=== PATIENT | female | born 1965 | race Caucasian/White ===

== ENCOUNTER 2023-12-04 08:04 | Outpatient (RCR) | payer BC, SELFPAY | END 2024-04-02 23:59 | disposition home or self-care (01) | PROVIDERS: PCP Orthopaedic Surgery; Visit Provider Orthopaedic Surgery | DX: M16.11 Unilateral primary osteoarthritis, right hip (principal); Z51.89 Encounter for other specified aftercare; R26.9 Unspecified abnormalities of gait and mobility; M62.81 Muscle weakness (generalized); M25.551 Pain in right hip | CPT/HCPCS: 97110; 97161 ==

== ENCOUNTER 2023-12-15 06:02 | Day surgery (SDC) | payer BC, SELFPAY ==
[2023-12-15] VITALS (20 sets, daily range): BP systolic 96–151; BP diastolic 51–117; PULSE 60–82; RESP 16–21; TEMP 35.9–36.8; O2SAT 92–98; BMI 30.4
[2023-12-15] MEDS: ACETAMINOPHEN 500 MG TABLET 1000 MG PO (06:20)
[2023-12-15] MEDS: OXYCODONE (CR) 10 MG TAB.ER.12H PO (06:20)
[2023-12-15] MEDS: CELECOXIB 200 MG CAPSULE PO (06:20)
[2023-12-15] MEDS: LACTATED RINGERS 1000 ML 1,000 ML 100 ML IV ×2 (06:25→10:35)
[2023-12-15] MEDS: SODIUM CHLORIDE 0.9 % (FLUSH) 10 ML SYRINGE IVF (06:25)
[2023-12-15] MEDS: MIDAZOLAM HCL 1 MG/ML inj IVP (07:23)
[2023-12-15] MEDS: fentaNYL 100 MCG/2 ML inj IVP (07:23)
--- NOTE | 2023-12-15 07:30 | XR_ITS ---
Patient: MARINA HSU Facility:?[facility] Patient ID:?[id number] Site Patient ID:?[id number]. Site :?1965 Study:?XRay-Hip Right 2V-12/15/2023 9:16:43 AM Ordering Physician:DB Final Report: Indication: Hip replacement surgery Technique: AP hip fluoroscopic images. Fluoroscopy time 67.4 seconds. Findings/Impression: Hardware from a right total hip arthroplasty is in satisfactory position. Dictated by Denzel Gabriel MD @ 12/15/2023 10:25:42 AM Signed by:?Denzel Gabriel MD @12/15/2023 10:25:42 AM (Electronic Signature)
[2023-12-15] MEDS: CEFAZOLIN 2 GM INJ IVP (07:40)
[2023-12-15] MEDS: TRANEXAMIC ACID 100 MG/ML INJ 1000 MG IV (07:45)
--- NOTE | 2023-12-15 07:52 | SUR.PREOP ---
TIME?OUT:?0722 PT/RN/MDA?VERIFICATION?OF?SURGICAL?SITE,?PROCEDURE,?AND?CONSENT OBTAINED?PRIOR?TO?INVASIVE?PROCEDURE. all in agreement.
--- NOTE | 2023-12-15 08:58 | XR_ITS ---
Patient: MARINA HSU Facility:?[facility] Patient ID:?[id number] Site Patient ID:?[id number]. Site :?[id number] Study:?XRay-Hip Right 2V POST OP-12/15/2023 12:32:39 PM Ordering Physician:DB Final Report: Indication: POST OP RIGHT HIP Technique: Frontal and lateral views of the right hip Comparison: None Findings/impression: Postsurgical changes of right total hip arthroplasty without evidence of hardware related complication. Expected postoperative gas within the soft tissues of the right hip and lower extremity. Partially visualized Essure devices. Dictated by Marquis Esquivel MD @ 12/15/2023 5:20:00 PM Signed by:?Marquis Esquivel MD @12/15/2023 5:20:00 PM (Electronic Signature)
--- NOTE | 2023-12-15 09:00 | PM.ORPRC ---
Procedure Note Date of procedure: 12/15/23 Procedure: PREOPERATIVE DIAGNOSIS: Right hip osteoarthritis POSTOPERATIVE DIAGNOSIS: Right hip osteoarthritis NAME OF OPERATION: Right total hip arthroplasty SURGEON: Manuel Ocampo MD COTTON WASHER: Makayla Arreola PA-C, KELIN Rocha IMPLANTS: 1. [employer] [place] # 52 ingrowth cup 2. 36 x 52 +4 neutral polyethylene 3. Actis # 5 standard collared ingrowth stem 4. 36 + 1.5 ceramic femoral head ANESTHESIA: General ESTIMATED BLOOD LOSS: 750 cc COMPLICATIONS: None SPECIMENS: None DRAINS: None PREOPERATIVE ANTIBIOTICS: Ancef 2 grams INDICATIONS: The patient is a 58-year-old with a longstanding history of severe, unrelenting right hip pain secondary to end-stage right hip osteoarthritis. Despite appropriate nonoperative management, including activity modification, use of an assist device, anti-inflammatories, [id number] pain medication, physical therapy and injections, they continue to have pain and disability. Operative intervention was offered. The risks, benefits and expected outcomes were discussed in detail. These included but were not limited to: Infection, bleeding, injury to blood vessel or nerve, venous thromboembolism. All questions were answered to their satisfaction. Use of an legal document assistant was necessary throughout the case for patient positioning and safety, soft tissue retraction and closure. PROCEDURE: The patient was placed supine on the [place] table. General anesthesia was administered. The legal document assistant made sure the patient was properly positioned. The right hip was prepped and draped in the usual sterile fashion. The image intensifier was brought in for a perfect AP pelvis and a perfect double tear drop AP view of each hip which were used for intraoperative templating with our fluoroscopic guide. An oblique incision was made 3 cm distal and 3 cm lateral to the anterior superior iliac spine. The legal document assistant retracted the soft tissues to protect them. Subcutaneous dissection was taken with electrocautery to the superficial fascia. The fascia was divided in line with the incision. Blunt dissection was carried medially to the tensor fascia lucila and sartorius interval. Deep dissection was carried with electrocautery. The circumflex vessels were cauterized and divided. The capsule was exposed and then divided in a T-fashion, tagged with #1 Ethibond sutures. Retractors were placed in the joint, held by the legal document assistant. The corkscrew was placed in the femoral head. The neck cut was made in the subcapital region. We made a second neck cut more distal. The napkin ring of bone was removed. The femoral head was removed intact. Acetabular retractors were placed, held by the legal document assistant. The labrum was sharply debrided. The capsule was released. The 43 mm reamer was used to the true medial wall. We then enlarged in 2 mm increments using the image intensifier for our reamer placement. We impacted the cup which had excellent purchase. We placed the polyethylene. Attention was then turned to the proximal femur. The limb was placed in 140 degrees of external rotation, maximum extension and adduction. A significant amount of time was spent releasing the capsule to allow us to deliver the femur into the wound and complete the femoral side safely. Retractors were held by the legal document assistant throughout the femoral preparation. The gill box operator and canal finder were used. Broaches were used to a stable size. The calcar reamer was used. Trial components were placed. The hip was reduced and was found to be stable with appropriate soft tissue tension. Length and offset had been nicely restored using the image intensifier and our fluoroscopic guide. Trial components were removed. The stem was impacted. We placed the femoral head. Again, the hip was reduced and was found to be stable with appropriate soft tissue tension. Length and offset had been nicely restored. The legal document assistant did a three minute dilute Betadine solution soak. The legal document assistant irrigated the wound with 3 liters of normal saline via pulse lavage. The legal document assistant repaired the anterior capsule with a #1 Vicryl and our previously placed Ethibond sutures. The legal document assistant closed the fascia over the tensor fascia lucila with a #1 PDO Stratafix, subcutaneous tissues with 2-0 Vicryl, skin with a running 3-0 Stratafix and glue. A dry dressing was applied by the legal document assistant. Sponge and needle counts were correct x 2. The patient tolerated the procedure well; there were no apparent complications. They were awakened and extubated in the operating room, sent to the Post-Anesthesia Care Unit in satisfactory condition. PLAN: 1. The patient will be mobilized with physical therapy, weight-bearing as tolerates 2. Xarelto x 5 days then aspirin x 30 days will be used for DVT prophylaxis 3. The patient will be discharged once medically appropriate
--- NOTE | 2023-12-15 09:14 | P.NB_ITS ---
Nerve Block Nerve Block Time Seen by Provider: 07:30 Date Seen: 12/15/23 Type of block requested by surgeon for post-operative analgesia: JULIA/LFCN Side: right Time out performed: Yes Verification of patient name: Yes Verification of date of : Yes Site marking: site marked Name of person performing procedure: Dheeraj Continuous monitoring Was continuous monitoring of O2 sat, B/P, cardiac cath rn, recorded every 15 minutes?: Yes Procedure Checklist: sterile prep, needles and gloves Ultrasound guided. Images saved: Yes Medications given in 5ml increments after negative aspiration: Ropivicaine %: 0.5 mL: 30 Needle gauge: 20 Decadron (mg): 10 Precedex (mcg): 25 Patient tolerated procedure well: Yes Additional comments: Needle noted below psoas tendon needle noted adjacent to LFCN Block Charges Block Charge (with Pro Fee): Other Periph Nerve Block Use of Ultrasound Machine for Block: Yes- US Guidance/pain block
--- NOTE | 2023-12-15 09:15 | W.ANESCHARGE ---
Anesthesia Charges Start Date/Time Anesthesia Start Date: 12/15/23 Anesthesia Start Time: 07:36 Stop Date/Time Anesthesia Stop Date: 12/15/23 Anesthesia Stop Time: 09:42
--- NOTE | 2023-12-15 09:41 | W.ANESCHARGE ---
Anesthesia Charges Start Date/Time Anesthesia Start Date: 12/15/23 Anesthesia Start Time: 07:36 Stop Date/Time Anesthesia Stop Date: 12/15/23 Anesthesia Stop Time: 09:42
[2023-12-15] MEDS: fentaNYL 100 MCG/2 ML inj 50 MCG IVP (10:07)
[2023-12-15] MEDS: OXYCODONE 5 MG TABLET PO (12:18)
[2023-12-15] MEDS: METOCLOPRAMIDE HCL 5 MG/ML INJ 10 MG IVP (13:44)
== END 2023-12-15 14:59 | disposition home or self-care (01) ==
PROVIDERS: PCP Physician Assistant; Visit Provider Orthopaedic Surgery
PROC: (CPT 27130; principal; 2023-12-15 07:30)
DX: M16.11 Unilateral primary osteoarthritis, right hip (principal); G89.18 Other acute postprocedural pain
CPT/HCPCS: 27130; 01214; 36415; 64450; 73501; 76000; 76942; 86850; 86900; 86901; 97110; 97116; 97161; 97165; A9270; C1776; J0330; J0690; J1100; J1170; J2250; J2405; J2704; J2710; J2765; J3010; J3475; J3490; J7120

== ENCOUNTER 2025-03-09 09:00 | Outpatient (CLI) | payer BC, SELFPAY ==
--- NOTE | 2025-03-09 09:15 | CRLHL7_ITS ---
For Patients: As a result of the Century Cures Act, medical imaging exams and procedure reports are released immediately into your electronic medical record. You may view this report before your referring provider. If you have questions, please contact your health care provider. ULTRASOUND-GUIDED LEFT BREAST BIOPSY AND POST-BIOPSY DIGITAL MAMMOGRAM FOR BIOPSY MARKER PLACEMENT CLINICAL HISTORY: Suspicious lesion. COMPARISON STUDIES: 02/22/2025 TECHNIQUE: Real-time ultrasound with image documentation was used for targeting the LEFT breast lesion. Core biopsy specimens were obtained using an automated gun with a 16-gauge biopsy needle. Post-biopsy CC and ML digital mammograms were obtained to document position of the biopsy marker. CONSENT and TIME OUT: The procedure, risks, and alternatives were explained to the patient and a consent was signed. [place] Protocol was followed including pre-procedure verification that relevant information/documentation was available, reviewed and properly matched to the patient; consent accurate and complete; and equipment and supplies available. Time Out was conducted just prior to starting procedure to verify the four required elements: patient identity, correct side/site marked (if applicable), procedure, relevant images/results properly labeled and displayed (if applicable). PROCEDURE: The patient was positioned supine on the ultrasound table. The breast was prepped with ChloraPrep. 8 cc of 1% lidocaine used for local anesthesia. Core samples were obtained. A sterile metal biopsy clip was placed percutaneously to amish the lesion position within the breast. The specimens were placed in 10% formalin and sent to the pathology department. Pressure was held on the biopsy site until all bleeding subsided. The skin incision was closed with Steri-Strips. An ice pack was positioned over the biopsy site. Post-biopsy instructions were reviewed with the patient, and a written copy was given to her. LATERALITY: LEFT breast LESION: Hypoechoic solid nodule measuring 9 x 9 x 5 mm at 2 o`clock, 8 cm from the nipple. SUSPICION FOR MALIGNANCY: High NUMBER OF SAMPLES: 5 BIOPSY CLIP SHAPE: Oval-shaped PROXIMITY OF CLIP TO TARGET: Within the lesion IMPRESSION: Ultrasound-guided LEFT breast biopsy. When the pathology report is available, an addendum to this report will be made. ACR not applicable Note that the LEFT axillary lymph nodes appeared normal on the ultrasound from 02/22/2025. Dictated by Denzel Gabriel MD @ 03/09/2025 12:25:43 PM CRL:freda RD/Dictated by: Denzel Gabriel MD @ 03/09/2025 12:25:00 PM (Electronically Signed)
--- NOTE | 2025-03-09 10:00 | CRLHL7_ITS ---
For Patients: As a result of the Century Cures Act, medical imaging exams and procedure reports are released immediately into your electronic medical record. You may view this report before your referring provider. If you have questions, please contact your health care provider. SEE LEFT BREAST ULTRASOUND-GUIDED BIOPSY OF SAME DAY. CRL:freda RD/Dictated by: Denzel Gabriel MD @ 03/09/2025 12:24:00 PM (Electronically Signed)
== END 2025-03-09 09:01 | disposition home or self-care (01) ==
LOC: US 09:01
PROVIDERS: PCP Physician Assistant; Visit Provider Physician Assistant
DX: N63.20 Unspecified lump in the left breast, unspecified quadrant (principal); C50.912 Malignant neoplasm of unspecified site of left female breast; R92.8 Other abnormal and inconclusive findings on diagnostic imaging of breast
CPT/HCPCS: 19083; 77065; 88305; 88360; 88361; A4648; A4649

== ENCOUNTER 2025-04-03 07:24 | Day surgery (SDC) | payer BC, SELFPAY ==
[2025-04-03] MEDS: LACTATED RINGERS 1000 ML 1,000 ML 100 ML IV (07:30)
[2025-04-03 07:47] VITALS: BP 122/84; PULSE 61; RESP 16; TEMP 36.6; O2SAT 96; BMI 28.8
[2025-04-03] MEDS: SODIUM CHLORIDE 0.9 % (FLUSH) 10 ML SYRINGE IVF (07:51)
--- NOTE | 2025-04-03 09:00 | CRLHL7_ITS ---
For Patients: As a result of the Century Cures Act, medical imaging exams and procedure reports are released immediately into your electronic medical record. You may view this report before your referring provider. If you have questions, please contact your health care provider. INDICATION: Left-sided breast carcinoma presenting for sentinel node evaluation prior to surgery. TECHNIQUE: [place] lymph node study performed after the intradermal injection of 0.872 mCi Tc-99m Filtered Sulfur Colloid in the upper outer left breast. FINDINGS: The procedure and its risks were explained in detail to the patient including but not limited to the risk of bleeding, infection, and a nondiagnostic procedure. The patient understood the procedure and its risks and elected to proceed. [place] protocol was followed and the Time Out procedure was performed. Then, using sterile technique and local anesthesia, an intradermal injection of 0.872 mCi Tc-99m Filtered Sulfur Colloid was made in the upper outer left breast in the periareolar region. No complications. Dictated by Denzel Gabriel MD @ 04/03/2025 10:51:13 AM (Electronically Signed)
--- NOTE | 2025-04-03 09:15 | CRLHL7_ITS ---
For Patients: As a result of the Century Cures Act, medical imaging exams and procedure reports are released immediately into your electronic medical record. You may view this report before your referring provider. If you have questions, please contact your health care provider. BREAST WIRE LOCALIZATION USING ULTRASOUND GUIDANCE CLINICAL HISTORY: Invasive ductal carcinoma. LATERALITY: LEFT breast. LESION: Solid angular nodule measures 8 millimeters at 2 o`clock 8 cm from the nipple. LOCALIZATION WIRE: [place] hookwire. TECHNIQUE: The localization wire was placed using real-time ultrasound guidance with image documentation. Cranial-caudal and medial-lateral digital mammograms were obtained after localization wire placement. CONSENT and TIME OUT: The procedure, risks, and alternatives were explained to the patient and a consent was signed. [place] Protocol was followed including pre-procedure verification that relevant information/documentation was available, reviewed and properly matched to the patient; consent accurate and complete; and equipment and supplies available. Time Out was conducted just prior to starting procedure to verify the four required elements: patient identity, correct side/site marked (if applicable), procedure, relevant images/results properly labeled and displayed (if applicable). PROCEDURE: The skin was prepped with ChloraPrep and 8 cc of 1% lidocaine was injected for local anesthesia. The localization wire was placed within or near the targeted breast lesion using ultrasound guidance. The patient tolerated the procedure well. PROXIMITY OF WIRE TO LESION: The wire is present within the lesion adjacent to the clip. IMPRESSION: Successful breast wire localization. ACR not applicable Dictated by Denzel Gabriel MD @ 04/03/2025 10:49:52 AM jj/Dictated by: Denzel Gabriel MD @ 04/03/2025 10:49:00 AM (Electronically Signed)
--- NOTE | 2025-04-03 09:45 | CRLHL7_ITS ---
For Patients: As a result of the Century Cures Act, medical imaging exams and procedure reports are released immediately into your electronic medical record. You may view this report before your referring provider. If you have questions, please contact your health care provider. SEE ULTRASOUND-GUIDED LEFT BREAST WIRE LOCALIZATION PERFORMED SAME DAY CRL:della hull/Dictated by: Denzel Gabriel MD @ 04/03/2025 10:47:00 AM (Electronically Signed)
--- NOTE | 2025-04-03 09:55 | W.PM.H&PU ---
History & Physical Update History & Physical Update H&P Reviewed and patient assessed: No changes noted
--- NOTE | 2025-04-03 09:55 | PM.GSPRC ---
Operative Note Date of procedure: 04/03/25 Pre-op diagnosis: Hormone positive Invasive ductal carcinoma, left breast Post-op diagnosis: Same Type of Procedure: 1. Left breast lumpectomy with preoperative wire localization 2. Left axillary sentinel lymph node biopsy Indications: The patient is a 59-year-old female who was found to have a suspicious mass on screening mammogram in her left breast. This was biopsied and found to be invasive ductal carcinoma, grade 1, ERPR positive, HER2 negative. After discussion of surgical options, she elected to proceed with lumpectomy and sentinel lymph node biopsy. Procedure Description: After discussing the risks and benefits of the procedure, the patient signed informed consent.? The operative site was marked and the patient was brought to the operating room and placed on the operating table in supine position.? Care was taken to pad the patient's pressure points.?? The patient was then given sedation by anesthesia.?? 1 hr prior to incision, I injected radiotracer into the dermis the left breast just above the areola. 10 min prior to the incision I injected 3 ml isosulfan blue dye into the dermis above the areola. This was massaged for 3 min. Once this was completed, the left breast and axilla were prepped and draped sterilely. A time-out was then completed. The mass was palpable in the upper outer breast and therefore I elected to create my incision over the top of the mass and excise the skin overlying. An ellipse was created in the skin following the skin lines and dissection was taken down through the subcutaneous fat using cautery. The end of the wire was pulled through the incision. The mass was then dissected out circumferentially down to the chest wall around the wire using cautery. This was inked for orientation and sent for specimen x-ray. This showed the clip within the specimen. This was then sent for gross margins. Attention was then turned to the sentinel lymph node biopsy. The probe was brought into the field. A strong signal was noted in the axilla. An incision was created at the base of the axillary hairline after injecting local anesthetic. Cautery was used to dissect through subcutaneous fat and then through the clavipectoral fascia. Once the axillary fat was entered, there was a blue lymphatic channel noted. This was in the general direction of the signal noted with the probe. A blue node was identified and this was carefully dissected out from the surrounding fat. A small lymphatic channel was clipped before dividing it distally. There appeared to be several nodes clumped together. These were dissected free from the surrounding axillary fat. Appeared as though there were 2 nodes that were blue which were not adjacent as well as an additional node which was not blue. These were removed together from the axilla. The 1st 2 blue nodes did have a strong signal. The smaller, node which was not blue did not have a signal with the probe. The probe was then placed back into the axilla. There was no additional signal within the axilla. There were no additional blue or abnormal appearing nodes. At this time, pathology had examine the lumpectomy specimen and found the margins to be grossly negative. Both the lumpectomy site and the lymph node site both appeared to be hemostatic. Clips were then placed in the lumpectomy cavity for marking purposes for radiation. Both wounds were then closed with 3-0 Vicryl dermal and 4-0 Monocryl running subcuticular suture. Sterile dressings were then applied. An Amol wrap was then applied. ? The patient was then woken and transported to the recovery area in stable condition. ? The patient tolerated the procedure well. Findings: 1. Left breast lumpectomy specimen with clip noted on x-ray and margins grossly negative 2. Left axillary sentinel lymph nodes identified x2 with an additional node sent Anesthesia: MAC Surgeon: Neha Izaguirre MD Estimated blood loss (mL): 10 Additional Specimen Information: 1. Left lumpectomy - for mammogram fee and gross margin and permanent section 2. Left axillary sentinel lymph nodes in formalin for permanent section Disposition: same day [place] Node Biopsy for Breast Cancer Operation Performed with Curative Intent: Yes Tracers used to Identify sentinel nodes in the upfront surgery (non-neoadjuvant) setting: Dye and Radioactive Tracer Tracers used to identify sentinel nodes in the neoadjuvant setting: N/A All nodes (colored or non-colored) present at the end of a dye filled lymphatic channel were removed: Yes All significantly radioactive nodes were removed: Yes All palpably suspicious nodes were removed: Yes Biopsy proven positive nodes marked with clips prior to chemotherapy were identified and removed: Not Applicable
[2025-04-03] MEDS: ISOSULFAN BLUE 5 ML VIAL INJECTION (10:45)
--- NOTE | 2025-04-03 11:15 | CRLHL7_ITS ---
For Patients: As a result of the Cures Act, medical imaging exams and procedure reports are released immediately into your electronic medical record. You may view this report before your referring provider. If you have questions, please contact your health care provider. LEFT BREAST SPECIMEN RADIOGRAPH CLINICAL HISTORY: INFILTRATING DUCTAL CARCINOMA COMPARISON: 03/09/2025 FINDINGS: Two views LEFT breast specimen. Specimen contains the biopsied mass, the biopsy clip and the localization wire. IMPRESSION: Specimen contains biopsied mass, biopsy clip and localization wire. ACR not applicable Dictated by Denzel Gabriel MD @ 04/03/2025 12:06:35 PM jj/Dictated by: Denzel Gabriel MD @ 04/03/2025 12:06:00 PM (Electronically Signed)
--- NOTE | 2025-04-03 11:27 | W.ANESCHARGE ---
Anesthesia Charges Start Date/Time Anesthesia Start Date: 04/03/25 Anesthesia Start Time: 10:26 Stop Date/Time Anesthesia Stop Date: 04/03/25 Anesthesia Stop Time: 12:08 Coding CPT Codes CPT Codes: ANESTH SURGERY OF SHOULDER - 11765 ([id number]) P3 - PATIENT W/SEVERE SYS DISEASE, QK - MARKETING TEACHER 2-4 CNCRNT ANES PROC, QX - GAS MASK INSPECTOR SVC W/ MD MED DIRECTION
--- NOTE | 2025-04-03 11:27 | P.ANES_ITS ---
Anesthesia Charges Start Date/Time Anesthesia Start Date: 04/03/25 Anesthesia Start Time: 10:26 Stop Date/Time Anesthesia Stop Date: 04/03/25 Anesthesia Stop Time: 12:08 Coding CPT Codes CPT Codes: ANESTH SURGERY OF SHOULDER - 81323 ([id number]) P3 - PATIENT W/SEVERE SYS DISEASE, QK - LOG RIDER 2-4 CNCRNT ANES PROC, QX - AIR BATTLE MANAGER SVC W/ MD MED DIRECTION
[2025-04-03] MEDS: BUPIVACAINE 0.25% 30 ML INJECTION (11:30)
[2025-04-03 12:05] VITALS: BP 156/98; PULSE 70; RESP 16; TEMP 36.4; O2SAT 95
--- NOTE | 2025-04-03 12:07 | P.ANES_ITS ---
Anesthesia Charges Start Date/Time Anesthesia Start Date: 04/03/25 Anesthesia Start Time: 10:26 Stop Date/Time Anesthesia Stop Date: 04/03/25 Anesthesia Stop Time: 12:08 Coding CPT Codes CPT Codes: ANESTH SURGERY OF SHOULDER - 83856 ([id number]) P3 - PATIENT W/SEVERE SYS DISEASE, QK - BROKERAGE PURCHASE AND SALE CLERK 2-4 CNCRNT ANES PROC, QX - NATIONAL SALES DIRECTOR SVC W/ MD MED DIRECTION
--- NOTE | 2025-04-03 12:07 | W.ANESCHARGE ---
Anesthesia Charges Start Date/Time Anesthesia Start Date: 04/03/25 Anesthesia Start Time: 10:26 Stop Date/Time Anesthesia Stop Date: 04/03/25 Anesthesia Stop Time: 12:08 Coding CPT Codes CPT Codes: ANESTH SURGERY OF SHOULDER - 06201 ([id number]) P3 - PATIENT W/SEVERE SYS DISEASE, QK - ACETYLENE BURNER 2-4 CNCRNT ANES PROC, QX - BRASS PICKLER SVC W/ MD MED DIRECTION
[2025-04-03 12:15] VITALS: BP 158/97; PULSE 62; RESP 16; O2SAT 94
[2025-04-03] MEDS: HYDROCODONE-ACETAMIN 5-325 MG 1 TAB PO (12:29)
[2025-04-03 12:30] VITALS: BP 139/89; PULSE 66; RESP 16; O2SAT 92
[2025-04-03 12:45] VITALS: BP 148/88; PULSE 61; RESP 16; O2SAT 93
== END 2025-04-03 13:21 | disposition home or self-care (01) ==
PROVIDERS: PCP Physician Assistant; Visit Provider Surgery
PROC: (CPT 19301; principal; 2025-04-03 10:45)
PROC: (CPT 19301; 2025-04-03 10:45)
PROC: (CPT 19301; 2025-04-03 10:45)
DX: C50.412 Malignant neoplasm of upper-outer quadrant of left female breast (principal); Z17.0 Estrogen receptor positive status [ER+]; Z17.21 Progesterone receptor positive status; Z17.32 Human epidermal growth factor receptor 2 negative status
CPT/HCPCS: 19301; 38500; 01610; 19285; 38792; 76942; 77065; A9270; A9541; C1769; J0665; J0690; J1100; J2405; J2704; J3010; J3490; J7120

== ENCOUNTER 2025-05-24 13:45 | Outpatient (CLI) | payer BC, SELFPAY ==
--- NOTE | 2025-05-24 14:00 | CRLHL7_ITS ---
For Patients: As a result of the Century Cures Act, medical imaging exams and procedure reports are released immediately into your electronic medical record. You may view this report before your referring provider. If you have questions, please contact your health care provider. DXA BONE MINERAL DENSITY STUDY Reason for exam: Baseline exam prior to endocrine therapy. Current height (in): 66. Weight (lb): 180. Menopause age: 47. Ethnicity: White. 1. Have you had a previous hip or vertebral fracture? Yes. 2. Have you had any fractures during your adult life which did not result from significant trauma (e.g., auto accident)? Yes. 3. Did either of your parents have a hip fracture? No. 4. Do you smoke? No. 5. Have you ever taken Glucocorticoids? No. 6. Do you have rheumatoid arthritis? No. 7. Do you have secondary osteoporosis? No. 8. Do you drink 3 or more alcoholic drinks per day? No. 9. Are you being treated for osteoporosis? No. 10. Have you ever taken any of the following medications: Actonel, Evista, Fosamax, Miacalcin, Reclast, Boniva, Forteo, HRT (i.e. estrogen/hormone therapy), Protelos, Prolia, Vitamin D, Calcium, other ??? please specify. ANSWER: No. 11. Do you have any of the following medical conditions: Anorexia or bulimia, asthma or emphysema, end stage renal disease, hyperparathyroidism, any seizure disorders, cancer, inflammatory bowel diseases, hysterectomy, other ??? please specify. ANSWER: Yes, cancer. 12. What was your maximum height (inches)? 67. 13. Do you perform weight bearing exercise regularly? No. 14. Do you regularly consume dairy products? Yes. 15. Do you drink caffeinated beverages? Yes. 16. At what age did your period start? 13. 17. Are you premenopausal? No. 18. How many full-term pregnancies have you had? Not provided. 19. Have you ever missed your period for more than 6 months in a row (not including or menopause)? Yes. TECHNIQUE: Bone mineral density study was performed using the [employer]. FINDINGS: The results of the study expressed as bone mineral density (BMD) are as follows: Lumbar spine L1 to L4: BMD: 0.891 g/cm2. T-score: -1.4. Z-score: 0.0. Neck Left: BMD: 0.739 g/cm2. T-score: -1.0. Z-score: 0.3. Total Left: BMD: 0.815 g/cm2. T-score: -1.0. Z-score: -0.1. Radius Left 33%: BMD: 0.664 g/cm2. T-score: -0.5. Z-score: 0.8. IMPRESSION: Osteopenia. *Comparison exams done prior to 02/2020 were performed on different unit, [employer]. Denzel Gabriel M.D. Diagnostic Radiologist [email or web address] CHAYITO/della hull/Dictated by: Denzel Gabriel MD @ 05/24/2025 3:46:00 PM (Electronically Signed)
== END 2025-05-24 13:46 | disposition home or self-care (01) ==
LOC: RAD 13:45
PROVIDERS: PCP Physician Assistant; Visit Provider Internal Medicine Hematology & Oncology
DX: Z78.0 Asymptomatic menopausal state (principal); M85.89 Other specified disorders of bone density and structure, multiple sites; C50.912 Malignant neoplasm of unspecified site of left female breast
CPT/HCPCS: 77080